=== PATIENT | male | born 1985 | race Caucasian/White ===

== ENCOUNTER 2019-09-08 00:52 | Emergency (ER) | payer SELFPAY ==
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
[2019-09-08 01:02] VITALS: BP 145/99; PULSE 108; RESP 22; TEMP 36.9; O2SAT 100
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
[2019-09-08] MEDS: TETANUS,DIPHTHERIA,AC PERTUSSIS ADULT 0.5 ML (ADACEL) IM (01:29)
[2019-09-08 02:03] VITALS: BP 141/97; PULSE 90; RESP 16; O2SAT 100
[2019-09-08 03:03] VITALS: BP 134/74; PULSE 90; RESP 16; TEMP 36.6; O2SAT 100
--- NOTE | 2019-09-13 05:15 | PC.NURSE ---
LATE ENTRY This note is being entered to document information to the patient's record. The following information was omitted on 09/08/2019, cefazolin stopped at 0129. Per edp metal finger splint applied per verbal order.
== END 2019-09-08 03:05 | disposition short-term general hospital (02) ==
PROVIDERS: Emergency Provider General Practice
DX: S61.231A Puncture wound without foreign body of left index finger without damage to nail, initial encounter (principal); F17.200 Nicotine dependence, unspecified, uncomplicated; W34.00XA Accidental discharge from unspecified firearms or gun, initial encounter; Z23 Encounter for immunization
CPT/HCPCS: 29130; 73140; 90471; 90715; 96365; 99284; J0690